=== PATIENT | female | born 1975 | race Two or more races ===

== ENCOUNTER 2017-08-26 03:53 | Emergency (ER) | payer SELFPAY ==
[~2017-08-26] VITALS: Ht 162.6 cm; Wt 91.0 kg
[2017-08-26 03:58] VITALS: BP 185/87
== END 2017-08-26 08:36 | disposition left against medical advice (07) ==
LOC: ER 03:53
DX: F41.9 Anxiety disorder, unspecified (principal); Z53.21 Procedure and treatment not carried out due to patient leaving prior to being seen by health care provider